=== PATIENT | male | born 1990 | race American Indian/Alaskan Native ===

== ENCOUNTER 2017-04-14 15:05 | Emergency (ER) | payer MEDICAID, OTHER ==
[2017-04-14 15:05] VITALS: BMI 19.0
[2017-04-14 15:20] VITALS: TEMP 98.1; O2SAT 98
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
[2017-04-14 16:58] VITALS: BP 124/78; PULSE 72; RESP 18
--- NOTE | 2017-04-14 20:02 | RAD ---
PROCEDURE: Cervical Spine Radiographs. HISTORY: Posttraumatic pain COMPARISON: None. FINDINGS: BONES: Alignment maintained. No fracture. Dens Intact. DISC SPACES: Normal. SOFT TISSUES: Normal. No prevertebral soft tissue swelling. OTHER FINDINGS: None. IMPRESSION: Normal cervical spine radiographs Concordant results with the preliminary interpretation rendered by the emergency department physician procedure.
== END 2017-04-14 16:58 | disposition home or self-care (01) ==
LOC: ED 15:05
DX: S16.1XXA Strain of muscle, fascia and tendon at neck level, initial encounter (principal); S09.90XA Unspecified injury of head, initial encounter; V49.49XA Driver injured in collision with other motor vehicles in traffic accident, initial encounter; Y92.414 Local residential or business street as the place of occurrence of the external cause